=== PATIENT | male | born 1945 | race Caucasian/White ===

== ENCOUNTER 2016-08-28 10:17 | Inpatient (IN) | payer OTHER ==
--- NOTE | ~2016-08-28 | CN ---
Consultation Report [facility] [address] [place]. [address] NAME: NICA BETANCOURT : 47 STATUS : ADM Magda PAT#: [id number] AGE: 71 ADM/REG DATE : 08/28/16 MR#: [id number] REPORT SERV DATE: 08/28/16 DICTATED BY: LOGAN HENRY DATE: 08/28/16 REPORT STATUS : Draft TRANSCRIBED BY: MODL DATE: 08/28/16 PULMONARY CONSULTATION DATE OF CONSULTATION: 08/28/2016 REASON FOR CONSULTATION: COPD exacerbation. CHIEF COMPLAINT: Coughing for the last several days. HISTORY OF PRESENT ILLNESS: Mr. Betancourt is a 71-year-old gentleman with a past medical history of COPD. The patient states he has had seven exacerbations and/or pneumonias in the last year, four hospitalizations. He currently follows up in our clinic. He has quit smoking less than one year ago. The patient states he is only on Spiriva. He has been coughing up sputum, no hemoptysis. He has been having fevers at nighttime, however. PAST MEDICAL HISTORY: COPD; sick sinus syndrome, status post pacemaker; recurrent pneumonia; sleep apnea; thoracic aortic aneurysm; neuropathy; orthostatic hypotension; and monoclonal gammopathy. HOME MEDICATIONS: Home medication list reviewed, pulmonary medications include albuterol, roflumilast, and Spiriva. ALLERGIES: NO KNOWN DRUG ALLERGIES. SOCIAL HISTORY: The patient currently lives alone. Quit smoking less than a year ago. No alcohol or illicit drug use. FAMILY HISTORY: The patient states he has a daughter, but she is busy with work and cannot take care of him for every little thing, but is definitely a support person. He has a brother who lives next door to him. According to the history, mother of lung cancer and father of arthritis. REVIEW OF SYSTEMS: All pertinent review of systems reviewed and is otherwise negative. PHYSICAL EXAMINATION: VITAL SIGNS: Afebrile, non-tachycardic, respiratory rate 16, oxygen saturation 95% on 2 L nasal cannula. GENERAL: The patient is alert and oriented, in no acute distress, mild pursed lip breathing. NECK: No JVD. No cervical lymphadenopathy. PULMONARY: Surprisingly clear. CARDIAC: Regular rate. No murmurs. ABDOMEN: Soft, nontender, nondistended. Positive bowel sounds. Consultation Report [facility] [address] [place]. [address] NAME: NICA BETANCOURT : 47 STATUS : ADM Magda PAT#: [id number] AGE: 71 ADM/REG DATE : 08/28/16 MR#: [id number] REPORT SERV DATE: 08/28/16 DICTATED BY: LOGAN HENRY DATE: 08/28/16 REPORT STATUS : Draft TRANSCRIBED BY: MODL DATE: 08/28/16 EXTREMITIES: No lower extremity edema. Peripheral pulses noted. NEUROLOGIC: No focal neurological deficits. LABORATORY EXAMINATION: No leukocytosis. Good kidney function. Bicarb 26. Arterial blood gas shows no significant hypercapnia. Chest x-ray done today shows possible hyperinflation. No pneumonia. Upon reviewing a CT scan from 03/2016, at that time, the patient has clear upper lobe predominant emphysematous changes with emphysema even in the lower lobes. At that time, the patient had a right pleural effusion and probable pneumonia. ASSESSMENT AND PLAN: Mr. Ncia Betancourt is a 71-year-old gentleman with a past medical history of chronic obstructive pulmonary disease and recurrent pneumonia. 1. Acute exacerbation of chronic obstructive pulmonary disease, chronic hypoxia, chronic obstructive pulmonary disease, which is most likely severe. We at this moment in time recommend changing his medications to Brovana, Pulmicort, DuoNeb therapy. Continue roflumilast. Continue prednisone therapy and antibiotics. At discharge, the change that I can see needed is to possibly switch him to nebulized forms of medications including Brovana, Pulmicort, and we can continue Spiriva rather than nebulizing about two DuoNebs. The patient states that he does better with this regimen. The patient is to follow up in the Pulmonary Clinic. Thank you very much for this consultation, please call us with any further questions or concerns. HFQ/MODL Logan Henry MD / [id number] CC: Phoenix Barcenas Jr, MD
--- NOTE | ~2016-08-28 | HP ---
History And Physical [address] [place]. [address] NAME: NICA LEGER : 47 STATUS : ADM Magda PAT#: [id number] AGE: 71 ADM/REG DATE : 08/28/16 MR#: [id number] REPORT SERV DATE: 08/28/16 DICTATED BY: NACHO DIAZ DATE: 08/28/16 REPORT STATUS : Draft TRANSCRIBED BY: MODL DATE: 08/28/16 DATE OF ADMISSION: 08/28/2016 REASON FOR ADMISSION: COPD with acute exacerbation. HISTORY OF PRESENT ILLNESS: This is a 71-year-old white male with known COPD. He is followed by Dr. Dumas in her office and Dr. Ziegler in his office in [place]. He has a longstanding history of COPD. He quit smoking cigarettes about 8 months ago. He has multiple hospitalizations for pneumonia. He was in the hospital until about 1 month ago for COPD with accumulation of pleural effusion on the right side. He has increasing shortness of breath over the last two weeks. He has been coughing. He has multiple ecchymoses on his arms from trying to raise chocolate lab puppy about 8 weeks old. He is not on any Coumadin though he does have a history of atrial fibrillation. PAST MEDICAL HISTORY: He has COPD on home oxygen. He has a permanent pacemaker after sick sinus syndrome was observed and he had multiple ablations by Dr. Correa. He has a history of recurrence of pneumonia in the past, COPD with sleep apnea but not on CPAP, history of depression and anxiety. He has severe neuropathy of the lower extremities, not from diabetes. He has a thoracic aortic aneurysm of 4.1 cm, orthostatic hypotension, previously was on Florinef associated with the neuropathy and a monoclonal gammopathy. He had a finger amputation, nasal surgery, appendectomy, and cholecystectomy in the past. CURRENT HOME MEDICATIONS: Include the following: Albuterol two puffs b.i.d.; aspirin 81 mg p.o. daily; Neurontin 600 mg p.o. three times a day; Atrovent nasal spray; Daliresp 500 mcg p.o. daily; spironolactone 25 mg p.o. daily; and Spiriva 1 cap daily. ALLERGIES: NONE KNOWN. SOCIAL HISTORY: He has been for about one year. He lives alone with his new dog. He quit smoking 8 months ago. 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 He developed neuropathy possibly from exposure to heavy metals. He does not attend cheondoism. He does not take any alcohol. FAMILY HISTORY: He has one daughter, who is alive and well. He has a brother who lives next door to him or right behind him in [place]. His mother of lung cancer and his father of degenerative crippling arthritis. REVIEW OF SYSTEMS: He has had no chest pain. He does have shortness of breath. He has a cough nonproductive. No fever, chills, or night sweats. No melena, hematemesis, fits, seizures, convulsions, nausea, vomiting, or diarrhea. He has had no swelling of his lower extremities. He does have severe dyspnea with exertion. He is on oxygen all the time. He does have dizziness when he stands. History And Physical [address] [address] NAME: NICA LEGER : 47 STATUS : ADM Magda PAT#: [id number] AGE: 71 ADM/REG DATE : 08/28/16 MR#: [id number] REPORT SERV DATE: 08/28/16 DICTATED BY: NACHO DIAZ DATE: 08/28/16 REPORT STATUS : Draft TRANSCRIBED BY: DARCI DATE: 08/28/16 Now the remainder of the review of systems is negative. LABORATORY DATA: Sodium 141, potassium 3.6, creatinine 0.92, BUN 11, glucose was 108, and albumin 3.0. Liver tests were normal. His chest x-ray portable shows COPD of the right middle lobe alveolar opacity most suggestive of atelectasis similar to August 18 when he was in the hospital. There is no new airspace consolidation. His white count is 9.6, hemoglobin 13.2, hematocrit 42.7, and platelets were 172,000. Blood gases show 7.45, 34, and 77 on room air. His CMP on 08/19/2016 was unchanged and a chest x-ray PA and lateral, done on 08/19/2016, showed COPD with no acute infiltrates. PHYSICAL EXAMINATION: GENERAL: This is a well-developed white male, lean, no acute distress, multiple ecchymoses on the arms. VITAL SIGNS: Blood pressure 143/67 initially, heart rate 77, respiratory rate 24, and oxygen saturation 98% on arrival on 4 L/minute. HEENT: EOMI. Sclerae clear. Conjunctivae pink. NECK: No bruit without any JVD. CHEST: Decreased breath sounds throughout. No rhonchi or wheezing. HEART: Regular S1, S2 without murmur, gallop, or click. ABDOMEN: Soft, nontender. Bowel sounds positive. No HSM. EXTREMITIES: Have no edema. Distal pulses are trace dorsalis pedis posterior tibial. NEUROLOGICAL: He withdraws to plantar stimulation though he has remarkably decreased sensation in his feet bilaterally. Printed Circuit Photographer is equal and symmetric bilaterally. Coordination intact. He has no tremor. Xyesib-pj-ogba is intact. Strength is symmetric in the upper extremities. LYMPHATICS: There is no adenopathy palpable. SKIN: Ecchymosis is noted in the arms and legs. LABORATORIES: As said. ASSESSMENT: 1. COPD with acute exacerbation. We will start aerosols. He is not on the long-acting aerosol here. Perhaps adding Symbicort would be of some value to him. We will consult Pulmonology as they had just seen him and this is likely a treatment failure with the patient having 2 weeks of this problem within 2 weeks of discharge. 2. Permanent pacemaker for sick sinus syndrome. 3. History of atrial fibrillation. 4. Severe neuropathy. 5. Ecchymoses on the arms. 6. History of right pleural effusion with this being tapped previously. 7. Recent hospitalization. PLAN: Try to enhance the treatment of the COPD. We will consult Dr. Dumas as she knows the patient as Pulmonology did in the past as well. We are going to start with observation as the patient has been in recent hospitalization to see if there are other measures we might be able to invoke that would be of some value to him. History And Physical [address] [address] NAME: NICA LEGER : 47 STATUS : ADM Magda PAT#: [id number] AGE: 71 ADM/REG DATE : 08/28/16 MR#: [id number] REPORT SERV DATE: 08/28/16 DICTATED BY: NACHO DIAZ DATE: 08/28/16 REPORT STATUS : Draft TRANSCRIBED BY: RODL DATE: 08/28/16 DB/MODL Nacho Diaz M.D. / [id number] CC: MD Bay Oseguera M.D. Pamela Sud, M.D. Nathan Mull IV, M.D.
--- NOTE | ~2016-08-28 | DS ---
Discharge Summary [address] [place]. [address] NAME: NICA LEGER : 47 STATUS : DIS Magda PAT#: [id number] AGE: 71 ADM/REG DATE : 08/28/16 MR#: [id number] REPORT SERV DATE: 09/01/16 DICTATED BY: GORDY LIGHT DATE: 08/31/16 REPORT STATUS : Draft TRANSCRIBED BY: MODL DATE: 08/31/16 ADMISSION DATE: 08/28/2016 DISCHARGE DATE: 08/31/2016 DISCHARGE DIAGNOSES: 1. Acute on chronic hypoxic respiratory failure. 2. Acute exacerbation of chronic obstructive pulmonary disease. 3. Peripheral neuropathy. 4. History of pacemaker placement with sick sinus syndrome. 5. History of atrial fibrillation. 6. Peripheral neuropathy. 7. Ecchymotic areas on the arm, currently stable. 8. History of right pleural effusion with previously benign tap. 9. Orthostatic hypotension in the past. CONSULTANTS DURING THIS HOSPITALIZATION: Dr. Henry of Pulmonology. INVASIVE PROCEDURES DONE DURING THIS HOSPITALIZATION: None. BRIEF HISTORY OF PRESENT ILLNESS: The patient is a 71-year-old white male with oxygen dependent acute on chronic hypoxic respiratory failure who presented with acute exacerbation of COPD, so he was admitted. For details of this admission, please refer to history and physical dictated by Dr. Jamaal Hayes on 08/28/2016. HOSPITAL COURSE: After being admitted to the hospital, this patient was given aggressive nebulizing treatments. He was given IV antibiotics and pulmonary consultation was obtained. Dr. Henry saw the patient in consultation and recommended that we keep him on home nebulized treatments of Perforomist and Pulmicort, and the patient agreed that he does well with nebulizers rather than inhalers because of the mechanics of using the medication. This patient otherwise remained stable. When I saw the patient, on his repeat chest x-ray he did not have any evidence of pneumonia. He was continued on Zithromax to finish a five-day course of the antibiotics. He was continued on prednisone to finish a five-day course of prednisone. Otherwise, he remained stable. His oxygen requirements had reduced back down to his baseline of about 3-5 L per day. He felt well enough and thought that he could go home and recover in the home setting. DISCHARGE DISPOSITION: Home. DISCHARGE ACTIVITY: As tolerated. DISCHARGE DIET: Low sodium diet. DISCHARGE MEDICATIONS: Prednisone 20 mg p.o. once daily for 3 days, azithromycin 250 mg once daily for two days, Perforomist 20 mcg one neb twice daily, Pulmicort 1 mg neb twice daily, aspirin 81 mg once daily, gabapentin 600 mg three times daily, Daliresp 50 mcg once daily, Aldactone 25 mg once daily, Spiriva one capsule inhalation once daily, Ventolin HFA 2 puffs Discharge Summary [address] [address] NAME: NICA LEGER : 47 STATUS : DIS Magda PAT#: [id number] AGE: 71 ADM/REG DATE : 08/28/16 MR#: [id number] REPORT SERV DATE: 09/01/16 DICTATED BY: GORDY LIGHT DATE: 08/31/16 REPORT STATUS : Draft TRANSCRIBED BY: DARCI DATE: 08/31/16 twice daily p.r.n. for rescue. DISCHARGE FOLLOWUP: With Dr. Debbie Dumas as scheduled previously. More than 30 minutes spent planning this patient's discharge, reconciling medications, writing prescriptions, discussing hospital care and followup with the patient and documenting this discharge. SOFIA/DARCI Gordy Light M.D. / [id number] CC: Rajni Mitchell M.D.
[2016-08-28 10:00] LABS: ALLENS TEST Pos; BE (BASE EXCESS) -0.5 MEQ/L (0 +/- 2.5); CARBOXYHEMOGLOBIN 1.9 % (0-3); DEVICE NC; HCO3 (ACTUAL BICARBONATE) 22.9 MEQ/L (23-27); HEMOBLOGIN CONTENT 13.8 G/DL (14-18); INSTRUMENT SERIAL # 8087; METHEMOGLOBIN 0.3 % (0-3); O2 CONTENT 18.2 VOL% (18-24); PCO2 (CO2 TENSION) 34 MMHG (35-45); PO2 (O2 TENSION) 77 MMHG (79-93); SAMPLE Arterial; pH 7.45 (7.37-7.43)
[2016-08-28 10:07] LABS: BASOPHILS 0.1 %; BASOPHILS ABSOLUTE 0.01 10/3/uL (0.0-0.16); EOSINOPHILS 0 %; HEMOGLOBIN 13.2 g/dL (13.6-17.8); IMMATURE GRANULOCYTES 0.2 %; IMMATURE GRANULOCYTES ABSOLUTE 0.02 10/3/uL (0.0-0.11); LYMPHOCYTES 8.1 %; LYMPHOCYTES ABSOLUTE 0.77 10/3/uL (0.67-4.30); MEAN CORPUS HGB CONC 32.4 g/dL (32.0-36.0); MEAN CORPUSCULAR HEMOGLOB 28.4 pg (26.0-34.0); MEAN CORPUSCULAR VOLUME 87.5 fL (80-100); MEAN PLATELET VOLUME 11.5 fL (9.2-13.0); MONOCYTES 4.5 %; MONOCYTES ABSOLUTE 0.43 10/3/uL (0.21-1.20); NEUTROPHILS 87.1 %; NEUTROPHILS ABSOLUTE 8.32 10/3/uL (2.02-8.40); PLATELET COUNT 172 10/3/uL (150-400); RBC DISTRIBUTION WIDTH 15.1 % (12.0-16.0); RED CELL COUNT 4.65 10/6/uL (4.7-6.1); WHITE BLOOD CELLS 9.6 10/3/uL (4.5-10.5)
[2016-08-28 10:08] LABS: ER CBC TAT 0 Hrs 06 MinsNP; HEMATOCRIT 40.7 % (40.0-51.0); MANUAL DIFF NO %
[~2016-08-28 10:17] MED LIST: ACET500CAP PO; ALBUTEROL5 INH; ASAB PO; ATRONASAL3 INH; ATRONASAL3 NAS; ATRONASAL6 NAS; BUSPAR15 M1 PO; CARDCD180 PO; CARDCD240 PO; CARTIA XT240 MG/24 PO; CELEXA20 PO; CHANTIX0.5 PO; CHANTIX1 PO; DALIRESP500 MCG PO; DSS PO; DULERA 100 MCG/13 GM PO; DULERA 200 MCG/13 GM PO; DUONEB INH; ELIQUIS 5 MG TAB5 MG PO; FLOMAX4 PO; FLORINEF0.1 MG PO; GLUCPH PO; IPRA17AE INH; K-TABS10 MEQ PO; KDUR10 PO; KLONO1 PO; LETROZOLE PO/SL; LEVAQUIN5T PO; LEVAQUIN750 MG PO; LOP25 PO; MEDROLPAK4 PO; MICRO-K10 MEQ PO; MONODOX100 MG PO; MULTIVITAMI1 PO; NEUR100 PO; NEUR300 PO; NEUR600 PO; P10 PO; P20 PO; PLAVIX PO; PRIN10 PO; PROAIR HFA INH; PROAMATINE10 MG PO; PROVHFA INH; PROVHFA PO; PROZAC PO; REM15 PO; RX NASAL SPRAY NAS; SPIRIVA INH; SPIRO25 PO; SYMBICORT 160/41 INH INH; Symbicort PO; T PO; TESTOSTERONE INJ; TESTOSTERONE TROCHE; ULTRAM50 PO; VENTOLIN HFA INH; ZITH250 PO; ZOL100 PO; ZOL50 PO; [UNRECOGNIZED DRUG - OTHER] PO
[2016-08-28 10:22] LABS: ALKALINE PHOSPHATASE 81 U/L (45-117); BUN (BLOOD UREA NITROGEN) 11 MG/DL (6-23); CHLORIDE, SERUM 107 MMOL/L (96-112); CO2 (CARBON DIOXIDE) 26 MMOL/L (24-34); CREATININE 0.92 MG/DL (0.70-1.30); GFR AFRICAN AMERICAN 97 ML/MIN (>=60); GFR NON AFRICAN AMERICAN 84 ML/MIN (>=60); GLUCOSE, SERUM 104 MG/DL (60-99); POTASSIUM, SERUM 3.6 MMOL/L (3.5-5.3); SGOT(AST) 9 U/L (5-40); SGPT(ALT) 15 U/L (5-65); SODIUM, SERUM 141 MMOL/L (135-148); TOTAL PROTEIN 6.7 G/DL (6.0-8.5)
[2016-08-28 10:23] LABS: A/G RATIO 0.8 (0.7-1.9); CALCIUM, SERUM 8.6 MG/DL (8.5-10.4); GLOBULIN 3.7 G/DL (2.5-4.1)
[2016-08-28] MEDS ORDERED: ATRONASAL6 NAS (11:29)
[2016-08-28] MEDS ORDERED: DALIRESP500 MCG PO (11:29)
[2016-08-28] MEDS ORDERED: SPIRO25 PO (11:30)
[2016-08-28] MEDS ORDERED: NEUR600 PO (11:30)
[2016-08-28] MEDS ORDERED: SPIRIVA INH (11:30)
[2016-08-28] MEDS ORDERED: ASAB PO (11:30)
[2016-08-28] MEDS ORDERED: VENTOLIN HFA INH (11:30)
[2016-08-28 12:07] LABS: INFLUENZA A SCREEN NEGATIVE (NEGATIVE); INFLUENZA B SCREEN NEGATIVE (NEGATIVE)
[2016-08-28 16:08] LABS: PROCALCITONIN <0.05 ng/mL (<0.5)
[2016-08-30 05:37] LABS: CALCIUM, SERUM 8.7 MG/DL (8.5-10.4); CHLORIDE, SERUM 107 MMOL/L (96-112); CO2 (CARBON DIOXIDE) 27 MMOL/L (24-34); CREATININE 1.08 MG/DL (0.70-1.30); GFR AFRICAN AMERICAN 80 ML/MIN (>=60); GFR NON AFRICAN AMERICAN 69 ML/MIN (>=60); GLUCOSE, SERUM 99 MG/DL (60-99); POTASSIUM, SERUM 4.1 MMOL/L (3.5-5.3); SODIUM, SERUM 142 MMOL/L (135-148)
[2016-08-30 05:39] LABS: BUN (BLOOD UREA NITROGEN) 19 MG/DL (6-23)
[2016-08-31] MEDS ORDERED: PERFOROM (10:35)
[2016-08-31] MEDS ORDERED: PULRESP1 INH (10:35)
[2016-08-31] MEDS ORDERED: P20 PO (10:36)
[2016-08-31] MEDS ORDERED: ZITH250 PO (10:37)
[2016-08-31] MEDS ORDERED: VENTOLIN HFA INH (10:38)
== END 2016-08-31 12:34 | disposition home or self-care (01) | DRG 189 ==
LOC: ER 10:17 → CDU1 12:01 → CDU2 12:35
PROVIDERS: Emergency Medicine; Internal Medicine
DX: J96.21 Acute and chronic respiratory failure with hypoxia (principal); I71.2 Thoracic aortic aneurysm, without rupture; J44.1 Chronic obstructive pulmonary disease with (acute) exacerbation; J90 Pleural effusion, not elsewhere classified; I48.91 Unspecified atrial fibrillation; Z99.81 Dependence on supplemental oxygen; G62.9 Polyneuropathy, unspecified; F32.9 Major depressive disorder, single episode, unspecified; S40.021A Contusion of right upper arm, initial encounter; D47.2 Monoclonal gammopathy; F41.9 Anxiety disorder, unspecified; S40.022A Contusion of left upper arm, initial encounter; Z87.891 Personal history of nicotine dependence; Z87.01 Personal history of pneumonia (recurrent); Z95.0 Presence of cardiac pacemaker; Z90.49 Acquired absence of other specified parts of digestive tract
CPT/HCPCS: 36600; 71010; 80048; 80053; 82805; 84145; 85025; 87040; 87070; 87205; 87804; 93005; 94640; 96365; 99285; A9270-GY; J1956

== ENCOUNTER 2016-09-20 16:33 | Inpatient (IN) | payer OTHER ==
--- NOTE | ~2016-09-20 | DS ---
Discharge Summary [facility] [address] [place]. [address] NAME: NICA LEGER : 47 STATUS : DIS IN PAT#: [id number] AGE: 71 ADM/REG DATE : 09/20/16 MR#: [id number] REPORT SERV DATE: 09/25/16 DICTATED BY: JEFE ARROYO DATE: 09/24/16 REPORT STATUS : Draft TRANSCRIBED BY: MODL DATE: 09/24/16 ADMISSION DATE: 09/20/2016 DISCHARGE DATE: 09/24/2016 CONDITION ON DISCHARGE: Stable. DISPOSITION: Discharged to home with home health. The reason I am getting home health for this patient is because of recurrent admissions. The patient has had a history of recurrent admissions mainly for COPD and we are trying to avoid this, and hence, the home health. The patient also has been advised the following upon discharge: 1. Follow up with senior managing director within the next two to three weeks and follow up with PCP within the next one to two weeks. DIAGNOSES ON DISCHARGE: 1. Acute bronchitis - resolved. Acute exacerbation of chronic obstructive pulmonary disease - resolved. 2. Influenza a positive that was probably responsible for tipping off this infection or this exacerbation - the patient has completed five-day course of Tamiflu. The patient states that he has received a flu shot. Diagnoses that are chronic include: 1. Chronic hypoxic respiratory failure, for which the patient is on home oxygen at 3 liters/minute. 2. Chronic obstructive pulmonary disease, which is chronic. 3. Status post pacemaker placement for sick sinus syndrome, which is stable. 4. Peripheral neuropathy, which is stable. BRIEF HOSPITAL COURSE: The patient is a 71-year-old male patient who was admitted to the hospital on 09/20/2016 with signs and symptoms as described in history and physical exam. The patient mainly was admitted with the diagnoses of acute bronchitis/acute exacerbation of COPD and also influenza A positive. He was started on antibiotics to cover most bacteria that do cause exacerbations of COPD, but at the same time, as the patient was extremely wheezy and also had a very poor pulmonary reserve, it was chosen that he would be on cefepime and vancomycin. The patient received these antibiotics for a total of five days and has improved tremendously. The patient has also been on Tamiflu for the last five days and it has improved tremendously. On the day of discharge, his cough has resolved. His breathing is much better and he is at baseline with oxygen requirement of 3liters/minute. He has also been given breathing treatments with DuoNebs on a regular basis and also put on prednisone. With all these measures, the patient's COPD has improved significantly and he is being sent home in stable condition with advice to follow up with senior managing director in the next two to three weeks. The new medications that he is going to be getting on discharge include Cheratussin AC for cough. The patient has been advised to take 15 mL of this every six hours for cough and he states that this has tremendously helped him. I am only dispensing 180 mL of this to avoid dependence. The patient will also be going home on tapering dose of prednisone with 30 mg a day for three days, 20 mg a day for three days, [address] [address] NAME: NICA LEGER : 47 STATUS : DIS IN PAT#: [id number] AGE: 71 ADM/REG DATE : 09/20/16 MR#: [id number] REPORT SERV DATE: 09/25/16 DICTATED BY: JEFE ARROYO DATE: 09/24/16 REPORT STATUS : Draft TRANSCRIBED BY: DARCI DATE: 09/24/16 mg a day for three days, 5 mg for three days, and stop. The patient will be resuming all his home medications upon discharge with absolutely no change at this time. At the time of discharge, he also mentioned that he wanted a prescription for Ventolin and Spiriva and a prescription for both the above medications of 30-day supply has also been given to him. He states he is good with all his other medicines and prescriptions that he takes at home. I do have the following labs that are significant on this patient upon discharge: 1. His CBC which was done on 09/23/2016 that shows a WBC count of 6.5, hemoglobin 12.1, hematocrit 36.5, and platelet count of 135. His electrolyte profile on 09/23/2016 that shows sodium 139, potassium 4.2, BUN 24, and creatinine 0.9. 2. Blood cultures have come back with no growth at two days. 3. His Legionella has come back negative. Streptococcus pneumo antigen has come back negative. 4. His urinalysis shows very clear urine. 5. There is no evidence of any infection in the urine per se. 6. Portable chest x-ray that was done on 09/21/2016 shows emphysematous COPD, pacemaker placement, mild cardiomegaly, otherwise, no acute infiltrate. Hence, the patient is being sent home in stable condition. I have spent about 35 to 40 minutes in coordinating discharge care of this patient. Again, his influenza A had come back positive, but his influenza B was negative. So, the patient is being sent home in stable condition. RRA/MODL Jefe Arroyo M.D. / [id number] CC: Rajni Oviedo M.D.
--- NOTE | ~2016-09-20 | HP ---
History And Physical [id number] [place]. [address] NAME: NICA LEGER : 47 STATUS : ADM IN [facility]#: [id number] AGE: 71 ADM/REG DATE : 09/20/16 MR#: [id number] REPORT SERV DATE: 09/21/16 DICTATED BY: CRISTHIAN ALVES DATE: 09/20/16 REPORT STATUS : Draft TRANSCRIBED BY: MODRatna DATE: 09/20/16 DATE OF ADMISSION: 09/20/2016 CHIEF COMPLAINT: Cough and shortness of breath. HISTORY OF PRESENT ILLNESS: This is a 71-year-old male with medical history of COPD, on home O2, chronic hypoxic respiratory failure, sick sinus syndrome, status post pacemaker placement, atrial fibrillation, peripheral neuropathy, who presented to the emergency room department with complaints of cough and shortness of breath. The patient reports that he was discharged from the hospital on September 01, and since discharge he was doing relatively well at home, able to perform his daily activities with minimal shortness of breath. However, the patient reports 4 days ago that he noticed worsening cough, cough was initially clear, but became productive of yellowish sputum. There was associated significant shortness of breath, both on exertion and at rest. There was also associated wheezing. The patient reports that he uses albuterol nebulizer multiple times without significant relief in the shortness of breath. He also endorsed history of generalized body pain, fatigue, and reduced p.o. intake. The patient denied any recent history of contact with any patients with flu-like symptoms. The patient endorsed history of fever, chills, and nasal congestion. Denies any sore throat. Denies any chest pain. Denies any palpitation, presyncope, or syncopal episode. The patient also denies bilateral lower extremity swelling. No orthopnea. No PND. No excessive weight gain. PAST MEDICAL HISTORY: 1. COPD. 2. Chronic hypoxic respiratory failure. 3. History of sick sinus syndrome, status post pacemaker placement. 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 Pacemaker placement in 2016, ablation x2 in 2016. SOCIAL HISTORY: The patient continues to smoke cigarettes. He smokes almost about half a pack a day. He denies drinking alcohol or illicit drug use. FAMILY HISTORY: Mother of lung cancer and his father had history of osteoarthritis, presently lives with his friend. ALLERGY HISTORY: No known drug allergies. MEDICATION LIST: 1. Ventolin inhaler one puff every four hours p.r.n. 2. Aspirin 81 mg p.o. daily. 3. Pulmicort Respules 1 mg inhaler twice a day. 4. Formoterol fumarate inhaler 20 mcg/2 mL 1 neb daily. 5. Gabapentin 600 mg p.o. t.i.d. History And Physical [address] [address] NAME: NICA LEGER : 47 STATUS : ADM IN PAT#: [id number] AGE: 71 ADM/REG DATE : 09/20/16 MR#: [id number] REPORT SERV DATE: 09/21/16 DICTATED BY: CRISTHIAN ALVES DATE: 09/20/16 REPORT STATUS : Draft TRANSCRIBED BY: DARCI DATE: 09/20/16 6. Roflumilast 500 mcg p.o. daily. 7. Doxycycline 100 mg p.o. b.i.d. 8. Melatonin 3 mg, 6 mg p.o. at bedtime. 9. Elavil 25 mg p.o. at bedtime. 10.DuoNeb inhaler 1 inhaler at bedtime. 11.Spiriva inhaler 1 inhaler daily. 12.Atrovent nasal spray 1 spray into the nostrils daily. REVIEW OF SYSTEMS: A 12-point review of system conducted, positive findings as per HPI. Rest of the systems essentially negative. PHYSICAL EXAMINATION: VITAL SIGNS: Blood pressure 107/76, temperature 98, pulse 71 beats per minute, saturating 96% on 3 L of oxygen. GENERAL: In mild respiratory distress and using accessory muscles of respiration to breathe. HEENT: Normocephalic, atraumatic. Extraocular muscles intact. Pupils equal, round, and reactive. Not pale. Anicteric. No cyanosis. Oral mucosa moist. NECK: Supple. No JVD. CHEST: No chest wall tenderness. Equal expansion. LUNGS: Diffuse expiratory and inspiratory wheezes. No crackles. No rhonchi. ABDOMEN: Bowel sounds normoactive. Soft, nontender. No palpably enlarged organomegaly. LOWER EXTREMITIES: No pedal edema. LABORATORY DATA: WBC 12.9, hemoglobin 15.6, hematocrit 46.3, MCV 88.7, platelets 164. Chemistry; sodium 134, potassium 4.7, chloride 98, bicarb 28, BUN 25, creatinine 1.27, GFR 57, glucose 94, calcium 9.4, total protein 9.0, albumin 4.1, globulin 4.9, total bilirubin 0.6, alkaline phosphatase 94, ALT 19, and AST 22. Influenza A and B; influenza A positive. IMAGING: Chest x-ray shows hyperinflated lungs with atelectasis at the left lower lobe with possible infiltrate and also at the bilateral lower lobes per my reading. Official report pending. SUMMARY: This is a 71-year-old male with medical history of COPD exacerbation, who was discharged from the hospital about 3 weeks ago, who presented to the hospital today with worsening cough, shortness of breath, and leukocytosis concerning for COPD exacerbation and HCAP. ASSESSMENT AND PLAN: 1. Acute chronic obstructive pulmonary disease exacerbation. The patient was noted to have expiratory wheezes, significant shortness of breath with cough productive of yellowish sputum concerning for COPD exacerbation. We will order IV methylprednisone, DuoNebs. We will restart the patient's home dose of all his inhalers. We will also have antibiotics coverage at this time. 2. Healthcare-associated pnuemonia. The patient presented with worsening cough, leukocytosis, chest x-ray with possible infiltrate concerning for HCAP. We will start History And Physical [address] [address] NAME: NICA LEGER : 47 STATUS : ADM IN [facility]#: [id number] AGE: 71 ADM/REG DATE : 09/20/16 MR#: [id number] REPORT SERV DATE: 09/21/16 DICTATED BY: CRISTHIAN ALVES DATE: 09/20/16 REPORT STATUS : Draft TRANSCRIBED BY: MODRatna DATE: 09/20/16 the patient on vancomycin and cefepime. Also given the patient has a flu test, a flu that this positive, this made it empiric to cover the patient with vancomycin at this time. 3. Flu A positive. I will start the patient on Tamiflu 75 mg p.o. b.i.d. 4. History of sick sinus syndrome, status post pacemaker. The patient's heart rate is currently steady and stable in the 70s. ADMISSION DISPOSITION: Med/Surge with tele. ADMISSION STATUS: Inpatient. CODE STATUS: Full code. DVT PROPHYLAXIS: Heparin subcu. IOO/MODL Cristhian Alves MD / [id number] CC: Rajni Fuentes M.D.
[~2016-09-20 16:33] MED LIST changes: +PERFOROM; +PULRESP1 INH
[2016-09-20] MEDS ORDERED: VENTOLIN HFA PO (16:35)
[2016-09-20] MEDS ORDERED: ASAB PO (16:35)
[2016-09-20] MEDS ORDERED: PULRESP1 INH (16:36)
[2016-09-20] MEDS ORDERED: PERFOROM INH (16:37)
[2016-09-20] MEDS ORDERED: NEUR600 PO (16:37)
[2016-09-20] MEDS ORDERED: DALIRESP500 MCG PO (16:37)
[2016-09-20] MEDS ORDERED: AMIT25 PO (16:38)
[2016-09-20] MEDS ORDERED: MELA3 PO (16:38)
[2016-09-20] MEDS ORDERED: MONODOX100 MG PO (16:38)
[2016-09-20] MEDS ORDERED: ATRONASAL6 NAS (16:39)
[2016-09-20] MEDS ORDERED: DUONEB INH (16:39)
[2016-09-20] MEDS ORDERED: SPIRIVA INH (16:39)
[2016-09-20 16:44] LABS: BASOPHILS 0.2 %; BASOPHILS ABSOLUTE 0.02 10/3/uL (0.0-0.16); EOSINOPHILS 0.1 %; EOSINOPHILS ABSOLUTE 0.01 10/3/uL (0.0-0.53); HEMOGLOBIN 15.6 g/dL (13.6-17.8); IMMATURE GRANULOCYTES 0.2 %; IMMATURE GRANULOCYTES ABSOLUTE 0.02 10/3/uL (0.0-0.11); LYMPHOCYTES 8.2 %; LYMPHOCYTES ABSOLUTE 1.06 10/3/uL (0.67-4.30); MEAN CORPUS HGB CONC 33.7 g/dL (32.0-36.0); MEAN CORPUSCULAR HEMOGLOB 29.9 pg (26.0-34.0); MEAN CORPUSCULAR VOLUME 88.7 fL (80-100); MONOCYTES ABSOLUTE 0.52 10/3/uL (0.21-1.20); NEUTROPHILS 87.3 %; NEUTROPHILS ABSOLUTE 11.23 10/3/uL (2.02-8.40); PLATELET COUNT 167 10/3/uL (150-400); RBC DISTRIBUTION WIDTH 15.5 % (12.0-16.0); RED CELL COUNT 5.22 10/6/uL (4.7-6.1); WHITE BLOOD CELLS 12.9 10/3/uL (4.5-10.5)
[2016-09-20 16:45] LABS: HEMATOCRIT 46.3 % (40.0-51.0); MANUAL DIFF NO %
[2016-09-20 17:00] LABS: CALCIUM, SERUM 9.4 MG/DL (8.5-10.4); CHLORIDE, SERUM 98 MMOL/L (96-112); CO2 (CARBON DIOXIDE) 28 MMOL/L (24-34); CREATININE 1.27 MG/DL (0.70-1.30); GFR AFRICAN AMERICAN 66 ML/MIN (>=60); GFR NON AFRICAN AMERICAN 57 ML/MIN (>=60); GLUCOSE, SERUM 94 MG/DL (60-99); POTASSIUM, SERUM 4.7 MMOL/L (3.5-5.3); SGOT(AST) 22 U/L (5-40); SGPT(ALT) 19 U/L (5-65); TOTAL BILIRUBIN 0.6 MG/DL (0-1.2)
[2016-09-20 17:05] LABS: A/G RATIO 0.8 (0.7-1.9); ALBUMIN 4.1 G/DL (3.5-5.0); ALKALINE PHOSPHATASE 94 U/L (45-117); BUN (BLOOD UREA NITROGEN) 25 MG/DL (6-23); GLOBULIN 4.9 G/DL (2.5-4.1); SODIUM, SERUM 134 MMOL/L (135-148)
[2016-09-20 17:21] LABS: INFLUENZA A SCREEN POSITIVE (NEGATIVE)
[2016-09-20 17:23] LABS: INFLUENZA B SCREEN NEGATIVE (NEGATIVE)
[2016-09-21 03:36] LABS: ALLENS TEST Pos; BE (BASE EXCESS) -1.8 MEQ/L (0 +/- 2.5); CARBOXYHEMOGLOBIN 1.7 % (0-3); DEVICE NC 2.5; HCO3 (ACTUAL BICARBONATE) 22.4 MEQ/L (23-27); HEMOBLOGIN CONTENT 14.8 G/DL (14-18); INSTRUMENT SERIAL # 8087; METHEMOGLOBIN 0.4 % (0-3); O2 CONTENT 18.7 VOL% (18-24); OPERATOR ID 14335; PCO2 (CO2 TENSION) 37 MMHG (35-45); PO2 (O2 TENSION) 64 MMHG (79-93); SAMPLE Arterial
[2016-09-21 07:28] LABS: BASOPHILS 0.1 %; BASOPHILS ABSOLUTE 0.01 10/3/uL (0.0-0.16); EOSINOPHILS 0 %; HEMOGLOBIN 13.1 g/dL (13.6-17.8); IMMATURE GRANULOCYTES 0.3 %; IMMATURE GRANULOCYTES ABSOLUTE 0.02 10/3/uL (0.0-0.11); LYMPHOCYTES 11.3 %; LYMPHOCYTES ABSOLUTE 0.77 10/3/uL (0.67-4.30); MEAN CORPUSCULAR HEMOGLOB 29.2 pg (26.0-34.0); MEAN CORPUSCULAR VOLUME 88.4 fL (80-100); MEAN PLATELET VOLUME 10.7 fL (9.2-13.0); MONOCYTES 8.2 %; MONOCYTES ABSOLUTE 0.56 10/3/uL (0.21-1.20); NEUTROPHILS 80.1 %; NEUTROPHILS ABSOLUTE 5.48 10/3/uL (2.02-8.40); PLATELET COUNT 122 10/3/uL (150-400); RBC DISTRIBUTION WIDTH 15.3 % (12.0-16.0); RED CELL COUNT 4.49 10/6/uL (4.7-6.1)
[2016-09-21 07:29] LABS: HEMATOCRIT 39.7 % (40.0-51.0); MANUAL DIFF NO %; WHITE BLOOD CELLS 6.8 10/3/uL (4.5-10.5)
[2016-09-21 07:36] LABS: INTERNATIONAL NORMAL RATI 1.1 UNITS (-); PROTIME (NOT ORD) 14.3 SEC (12.0-14.5)
[2016-09-21 07:51] LABS: BUN (BLOOD UREA NITROGEN) 23 MG/DL (6-23); CALCIUM, SERUM 8.7 MG/DL (8.5-10.4); CHLORIDE, SERUM 101 MMOL/L (96-112); CO2 (CARBON DIOXIDE) 27 MMOL/L (24-34); CREATININE 0.89 MG/DL (0.70-1.30); GFR AFRICAN AMERICAN 100 ML/MIN (>=60); GFR NON AFRICAN AMERICAN 87 ML/MIN (>=60); GLUCOSE, SERUM 133 MG/DL (60-99); PHOSPHORUS, SERUM 3.7 MG/DL (2.5-4.5); POTASSIUM, SERUM 4.5 MMOL/L (3.5-5.3); SODIUM, SERUM 137 MMOL/L (135-148); ULTRASENSITIVE TSH 0.854 MCIU/ML (0.358-3.740)
[2016-09-21 08:42] LABS: ASCORBIC ACID (UR NOT ORDER) NEG (NEG); BILIRUBIN, URINE NEGATIVE (NEG); KETONE, URINE NEGATIVE (NEG); LEUKOCYTE ESTERASE(NOT OR NEG (NEG); WBC (NOT ORDERED) (RFLEX) < 1 (0-5)
[2016-09-22 06:55] LABS: BASOPHILS 0.1 %; BASOPHILS ABSOLUTE 0.01 10/3/uL (0.0-0.16); EOSINOPHILS 0 %; HEMATOCRIT 38.1 % (40.0-51.0); HEMOGLOBIN 12.5 g/dL (13.6-17.8); IMMATURE GRANULOCYTES 0.3 %; IMMATURE GRANULOCYTES ABSOLUTE 0.02 10/3/uL (0.0-0.11); LYMPHOCYTES 12.4 %; LYMPHOCYTES ABSOLUTE 0.99 10/3/uL (0.67-4.30); MANUAL DIFF NO %; MEAN CORPUS HGB CONC 32.8 g/dL (32.0-36.0); MEAN CORPUSCULAR HEMOGLOB 28.8 pg (26.0-34.0); MEAN CORPUSCULAR VOLUME 87.8 fL (80-100); MEAN PLATELET VOLUME 11.4 fL (9.2-13.0); MONOCYTES 10.2 %; MONOCYTES ABSOLUTE 0.81 10/3/uL (0.21-1.20); NEUTROPHILS ABSOLUTE 6.14 10/3/uL (2.02-8.40); PLATELET COUNT 130 10/3/uL (150-400); RED CELL COUNT 4.34 10/6/uL (4.7-6.1)
[2016-09-22 07:09] LABS: BUN (BLOOD UREA NITROGEN) 23 MG/DL (6-23); CALCIUM, SERUM 8.5 MG/DL (8.5-10.4); CHLORIDE, SERUM 102 MMOL/L (96-112); CO2 (CARBON DIOXIDE) 30 MMOL/L (24-34); CREATININE 0.88 MG/DL (0.70-1.30); GFR AFRICAN AMERICAN 101 ML/MIN (>=60); GFR NON AFRICAN AMERICAN 87 ML/MIN (>=60); GLUCOSE, SERUM 103 MG/DL (60-99); POTASSIUM, SERUM 4.2 MMOL/L (3.5-5.3); SODIUM, SERUM 140 MMOL/L (135-148)
[2016-09-23 06:02] LABS: BASOPHILS 0.2 %; BASOPHILS ABSOLUTE 0.01 10/3/uL (0.0-0.16); EOSINOPHILS 0 %; HEMATOCRIT 36.5 % (40.0-51.0); HEMOGLOBIN 12.1 g/dL (13.6-17.8); IMMATURE GRANULOCYTES 0.3 %; IMMATURE GRANULOCYTES ABSOLUTE 0.02 10/3/uL (0.0-0.11); LYMPHOCYTES 12.5 %; LYMPHOCYTES ABSOLUTE 0.81 10/3/uL (0.67-4.30); MEAN CORPUS HGB CONC 33.2 g/dL (32.0-36.0); MEAN CORPUSCULAR HEMOGLOB 28.7 pg (26.0-34.0); MEAN CORPUSCULAR VOLUME 86.7 fL (80-100); MEAN PLATELET VOLUME 11.5 fL (9.2-13.0); MONOCYTES 9.4 %; MONOCYTES ABSOLUTE 0.61 10/3/uL (0.21-1.20); NEUTROPHILS 77.6 %; NEUTROPHILS ABSOLUTE 5.01 10/3/uL (2.02-8.40); PLATELET COUNT 135 10/3/uL (150-400); RBC DISTRIBUTION WIDTH 15.6 % (12.0-16.0); RED CELL COUNT 4.21 10/6/uL (4.7-6.1); WHITE BLOOD CELLS 6.5 10/3/uL (4.5-10.5)
[2016-09-23 06:03] LABS: MANUAL DIFF NO %
[2016-09-23 06:20] LABS: BUN (BLOOD UREA NITROGEN) 24 MG/DL (6-23); CALCIUM, SERUM 8.7 MG/DL (8.5-10.4); CHLORIDE, SERUM 103 MMOL/L (96-112); CO2 (CARBON DIOXIDE) 30 MMOL/L (24-34); CREATININE 0.93 MG/DL (0.70-1.30); GFR AFRICAN AMERICAN 96 ML/MIN (>=60); GFR NON AFRICAN AMERICAN 83 ML/MIN (>=60); GLUCOSE, SERUM 120 MG/DL (60-99); POTASSIUM, SERUM 4.2 MMOL/L (3.5-5.3); SODIUM, SERUM 139 MMOL/L (135-148)
[2016-09-24] MEDS ORDERED: SPIRIVA INH (13:22)
[2016-09-24] MEDS ORDERED: VENTOLIN HFA INH (13:23)
[2016-09-24] MEDS ORDERED: CHERATUSSIN PO (13:23)
[2016-09-24] MEDS ORDERED: P5 (13:24)
== END 2016-09-24 15:17 | disposition home or self-care (01) | DRG 194 ==
LOC: ER 16:33 → 1SO 18:15
PROVIDERS: Hospitalist; Nurse Practitioner; Nurse Practitioner Family
DX: J10.01 Influenza due to other identified influenza virus with the same other identified influenza virus pneumonia (principal); J96.11 Chronic respiratory failure with hypoxia; J44.0 Chronic obstructive pulmonary disease with (acute) lower respiratory infection; J44.1 Chronic obstructive pulmonary disease with (acute) exacerbation; D69.6 Thrombocytopenia, unspecified; I49.5 Sick sinus syndrome; Z99.81 Dependence on supplemental oxygen; I48.91 Unspecified atrial fibrillation; I95.1 Orthostatic hypotension; J20.9 Acute bronchitis, unspecified; I73.9 Peripheral vascular disease, unspecified; F17.210 Nicotine dependence, cigarettes, uncomplicated; Y95 Nosocomial condition; Z95.0 Presence of cardiac pacemaker; Z79.82 Long term (current) use of aspirin; Z79.899 Other long term (current) drug therapy
CPT/HCPCS: 36415; 36600; 71010; 80048; 80053; 80069; 80202; 81001; 82805; 83735; 84439; 84443; 85025; 85610; 86738; 87040; 87070; 87205; 87449; 87804; 93005; 94640; 96374; 97161-GP; 99285; A9270-GY; G0463; J0692; J2930; J3370